=== PATIENT | female | born 1975 | race American Indian/Alaskan Native ===

== ENCOUNTER 2021-01-05 10:51 | Emergency (ER) | payer SELFPAY ==
[2021-01-05 11:02] VITALS: BP 131/73
--- NOTE | 2021-01-05 12:18 | Emergency Department Report ---
ED General Adult HPI - General Chief complaint: Skin/Abscess/Foreign Body Stated complaint: SPIDER BITE ON THUMB Time Seen by Provider: 01/05/21 11:44 Source: patient Mode of arrival: Ambulatory Limitations: No Limitations - History of Present Illness Initial comments: 45-year-old [id number] female patient presents to emergency department with complaints of nontraumatic pain and swelling to her left thumb starting last night. Patient states the pain began after she was moving some boxes in her garage. Patient is not currently on antibiotics. She is immunocompetent. Denies fever, chills, purulent drainage, paresthesias, numbness. Denies all other complaints at this time. - Related Data Previous Rx's Medication Instructions Recorded Last Taken Type Chlorhexidine Gluconate 118 ml TP QID 7 Days liquid 01/05/21 Unknown Rx [Antiseptic Skin Cleanser] Fluconazole [Diflucan TAB] 200 mg PO ONCE 1 Days #1 tablet 01/05/21 Unknown Rx Naproxen 500 mg PO BID #20 tablet 01/05/21 Unknown Rx cephALEXin [Keflex] 500 mg PO Q12HR 5 Days cap 01/05/21 Unknown Rx Allergies Allergy/AdvReac Type Severity Reaction Status Date / Time No Known Allergies Allergy Verified 01/05/21 11:00 ED Review of Systems ROS: Stated complaint: SPIDER BITE ON THUMB Other details as noted in HPI Other: GENERAL: Negative for fever. CARDIOVASCULAR: Negative for chest pain. PULMONARY: Negative for shortness of breath. GASTROINTESTINAL: Negative for abdominal pain. MUSCULOSKELETAL: Positive for thumb pain. NEUROLOGICAL: Negative for headache. INTEGUMENTARY: Negative for rash. ED Past Medical Hx - Past Medical History Previous Medical History?: No - Surgical History Past Surgical History?: No - Social History Smoking Status: Never Smoker Substance Use Type: Alcohol - Medications Home Medications: Home Medications Medication Instructions Recorded Confirmed Last Taken Type Chlorhexidine Gluconate 118 ml TP QID 7 Days liquid 01/05/21 Unknown Rx [Antiseptic Skin Cleanser] Fluconazole [Diflucan TAB] 200 mg PO ONCE 1 Days #1 tablet 01/05/21 Unknown Rx Naproxen 500 mg PO BID #20 tablet 01/05/21 Unknown Rx cephALEXin [Keflex] 500 mg PO Q12HR 5 Days cap 01/05/21 Unknown Rx ED Physical Exam - General Limitations: No Limitations - Other Other exam information: General: Awake, appropriately interactive, no acute distress. Neck: Supple. Full range of motion intact. Cardiovascular: Normal peripheral perfusion. Pulmonary: No respiratory distress. Patient is speaking normally without use of accessory muscles. Skin: Tenderness to palpation along the distal aspect of the left thumb, adjacent to the nailbed, with overlying erythema and soft tissue swelling. There is minimal fluctuance. There is no drainage. No proximally streaking erythema. Patient is able to flex and extend the thumb with and without resistance. Distal neurovascular and motor/sensory function intact. Neurological: No facial asymmetry. Speech is clear. Follows commands. Patient is alert and oriented. Musculoskeletal: Moves all four extremities spontaneously with normal range of motion. Psych: Cooperative. Appropriate mood and affect. ED Course Vital Signs 01/05/21 11:00 Temperature 98.4 F Pulse Rate 88 Respiratory 18 Rate Blood Pressure 131/73 O2 Sat by Pulse 100 Oximetry ED Medical Decision Making - Medical Decision Making Differential diagnosis including but not limited to: paronychia, felon, abscess, cellulitis, necrotizing soft tissue infection Patient presents to the emergency department with signs/symptoms consistent with paronychia. Patient was barely able to cooperate with examination of the hand; incision & drainage of the left thumb was offered, but patient refused. She has expressed a preference for conservative management. Patient is afebrile, hemodynamically stable, neurovascularly intact. Only minimal fluctuance is present; it is reasonable to proceed with oral antibiotics, analgesics, and warm compresses, with the understanding that she must undergo the procedure if symptoms persist or worsen after 24 hours of antibiotic therapy. She has been instructed to call her primary care provider tomorrow to arrange for repeat evaluation in 48 hours. Patient expressed understanding and is agreeable to plan of care. States she is susceptible to yeast infections when taking antibiotics; prescribed Diflucan. Strict return precautions provided. Repeat exam is unremarkable and benign. History, exam, diagnostic testing, and current condition do not suggest worrisome pathology to warrant further testing, continued ED treatment, admission, or surgical evaluation at this point. Given the low probability of a significant medical illness, it would be more likely to result in harm than benefit to perform further testing at this stage. Discussed findings, presumptive diagnosis, need for follow-up and specific signs/symptoms that should prompt immediate return to the emergency department. Instructions were explained in detail to the patient in addition to giving written discharge information. Patient expressed understanding and was given the opportunity to ask questions, all of which were satisfactorily answered prior to discharge home. Critical care attestation.: If time is entered above; I have spent that time in minutes in the direct care of this critically ill patient, excluding procedure time. ED Disposition Clinical Impression: Paronychia of left thumb Disposition: DC- TO HOME OR SELFCARE Is pt being admited?: No Does the pt Need Aspirin: No Condition: Stable Instructions: Paronychia, [id number] Additional Instructions: Take Tylenol every 4 hours as needed for pain. Take Naprosyn twice daily with food as needed for pain. Take Keflex with food as directed. Take Diflucan for prevention of yeast infection. Soak the affected area in warm water and antiseptic (Chlorhexidine) four times daily. The area may begin to drain on its own. Do not attempt to forcefully expect drainage from the area.Follow-up with primary care provider this week. Call tomorrow to schedule an appointment. See referral information below. Return to the emergency department immediately for new or worsening symptoms. Specifically, return to the emergency department immediately for fever, worsening pain, increased swelling, streaking redness, or if symptoms worsen after 24 hours of antibiotic therapy. Prescriptions: Chlorhexidine Gluconate [Antiseptic Skin Cleanser] 118 ml TP QID 7 Days liquid Fluconazole [Diflucan TAB] 200 mg PO ONCE 1 Days #1 tablet cephALEXin [Keflex] 500 mg PO Q12HR 5 Days cap Naproxen 500 mg PO BID #20 tablet Referrals: NEY CABA MD [Staff Physician] - 3-5 Days [facility] [Outside] - 3-5 Days [facility] [Outside] - 3-5 Days [facility] [Outside] - 3-5 Days Time of Disposition: 12:21
== END 2021-01-05 12:44 | disposition home or self-care (01) ==
LOC: ED 10:51
DX: L03.012 Cellulitis of left finger (principal); Z79.899 Other long term (current) drug therapy
CPT/HCPCS: 99282

== ENCOUNTER 2021-07-13 07:25 | Emergency (ER) | payer SELFPAY ==
[2021-07-13 07:54] VITALS: BP 155/76
--- NOTE | 2021-07-13 07:56 | Emergency Department Report ---
ED Eye Problem HPI - General Chief complaint: Eye Problems Stated complaint: LFT EYE PROBLEM Time Seen by Provider: 07/13/21 07:32 Source: patient Mode of arrival: Ambulatory Limitations: No Limitations - History of Present Illness Initial comments: This is a 45-year-old female nontoxic, well nourished in appearance, no acute signs of distress presents to the ED with c/o of left lower eyelid redness with some swelling that started last night. Patient stated woke up this morning with lower periorbital redness. Patient denies any trauma to the eye. Denies any foreign body sensation or floaters. Patient denies any eye pain. Patient denies any visual changes or decreased vision. Patient denies any fever, chills, nausea, vomiting, chest pain, breath, headache, stiff neck numbness or tingling. Patient denies any allergies. Patient denies any trauma or injuries. -: days(s) Onset Description: gradual Location: left eye Place: home If Injury: none Severity: mild Severity scale (0 -10): 3 If Pain, Quality: aching Consistency: constant Associated Symptoms: none. denies: headache, neck pain, nausea/vomiting, cough, rhinorrhea, fever, shortness of breath Treatments Prior to Arrival: none - Related Data Previous Rx's Medication Instructions Recorded Last Taken Type Chlorhexidine Gluconate 118 ml TP QID 7 Days liquid 01/05/21 Unknown Rx [Antiseptic Skin Cleanser] Fluconazole [Diflucan TAB] 200 mg PO ONCE 1 Days #1 tablet 01/05/21 Unknown Rx Naproxen 500 mg PO BID #20 tablet 01/05/21 Unknown Rx cephALEXin [Keflex] 500 mg PO Q12HR 5 Days cap 01/05/21 Unknown Rx Amoxicillin/K Clav Tab [Augmentin 1 tab PO Q12HR #20 tab 07/13/21 Unknown Rx 875 mg] Erythromycin [Erythromycin Ophth 1 applic OS BID 7 Days #1 tube 07/13/21 Unknown Rx Oint] Naproxen 500 mg PO Q12H PRN #12 tablet 07/13/21 Unknown Rx Allergies Allergy/AdvReac Type Severity Reaction Status Date / Time No Known Allergies Allergy Verified 01/05/21 11:00 ED Review of Systems ROS: Stated complaint: LFT EYE PROBLEM Other details as noted in HPI Comment: All other systems reviewed and negative Constitutional: denies: chills, fever Eyes: other (left eyelid pain and swelling). denies: eye pain, eye discharge, vision change ENT: denies: ear pain, throat pain Respiratory: denies: cough, shortness of breath, wheezing Cardiovascular: denies: chest pain, palpitations Endocrine: no symptoms reported Gastrointestinal: denies: abdominal pain, nausea, diarrhea Genitourinary: denies: urgency, dysuria, discharge Musculoskeletal: denies: back pain, joint swelling, arthralgia Skin: denies: rash, lesions Neurological: denies: headache, weakness, paresthesias Psychiatric: denies: anxiety, depression Hematological/Lymphatic: denies: easy bleeding, easy bruising ED Past Medical Hx - Past Medical History Previous Medical History?: No - Surgical History Past Surgical History?: Yes Additional Surgical History: - Social History Smoking Status: Never Smoker Substance Use Type: Alcohol - Medications Home Medications: Home Medications Medication Instructions Recorded Confirmed Last Taken Type Chlorhexidine Gluconate 118 ml TP QID 7 Days liquid 01/05/21 Unknown Rx [Antiseptic Skin Cleanser] Fluconazole [Diflucan TAB] 200 mg PO ONCE 1 Days #1 tablet 01/05/21 Unknown Rx Naproxen 500 mg PO BID #20 tablet 01/05/21 Unknown Rx cephALEXin [Keflex] 500 mg PO Q12HR 5 Days cap 01/05/21 Unknown Rx Amoxicillin/K Clav Tab [Augmentin 1 tab PO Q12HR #20 tab 07/13/21 Unknown Rx 875 mg] Erythromycin [Erythromycin Ophth 1 applic OS BID 7 Days #1 tube 07/13/21 Unknown Rx Oint] Naproxen 500 mg PO Q12H PRN #12 tablet 07/13/21 Unknown Rx ED Physical Exam - General Limitations: No Limitations General appearance: alert, in no apparent distress - Head Head exam: Present: atraumatic, normocephalic - Eye Eye exam: Present: normal appearance, PERRL, EOMI, other (left lower periorbital redness). Absent: scleral icterus, conjunctival injection, nystagmus, periorbital swelling, periorbital tenderness Pupils: Present: normal accommodation - Expanded Eye Exam Expanded Eyelids: Normal Inspection: Right Pupils: Regular, Round: Right, Reactive: Right Sclera/Conjunctival: Normal Inspection: Right - ENT ENT exam: Present: normal exam, normal orophraynx - Neck Neck exam: Present: normal inspection, full ROM. Absent: tenderness, meningism us, lymphadenopathy - Respiratory Respiratory exam: Absent: respiratory distress - Cardiovascular Cardiovascular Exam: Present: regular rate - Extremities Exam Extremities exam: Present: full ROM - Back Exam Back exam: Present: full ROM - Neurological Exam Neurological exam: Present: alert, oriented X3, normal gait - Psychiatric Psychiatric exam: Present: normal affect, normal mood - Skin Skin exam: Present: warm, dry, intact, normal color. Absent: rash ED Course Vital Signs 07/13/21 07:32 Temperature 97.9 F Pulse Rate 85 Respiratory 18 Rate Blood Pressure 155/76 O2 Sat by Pulse 100 Oximetry - Reevaluation(s) Reevaluation #1: 07/13/21 07:55 Patient is speaking in full sentences with no signs of distress noted. ED Medical Decision Making - Medical Decision Making 45-year-old female that presents with left periorbital cellulitis and left lower eyelid stye. Patient is stable was examined by me. Patient be treated with Augmentin and erythromycin ointment. Physical exam otherwise unremarkable. Patient educated on stye and applying warm compressors. Patient was instructed to follow-up with a primary care and fortune teller doctor in 3-5 days or if symptoms worsen and continue return to emergency room as soon as possible. At time of discharge, the patient does not seem toxic or ill in appearance. No acute signs of distress noted. Patient agrees to discharge treatment plan of care. No further questions noted by the patient. Critical care attestation.: If time is entered above; I have spent that time in minutes in the direct care of this critically ill patient, excluding procedure time. ED Disposition Clinical Impression: Periorbital cellulitis of left eye Hordeolum eyelid Qualifiers: Hordeolum type: unspecified type Laterality: left Eyelid: lower Qualified Code(s): H00.015 - Hordeolum externum left lower eyelid Disposition: 01 HOME / SELF CARE / HOMELESS Is pt being admited?: No Does the pt Need Aspirin: No Condition: Stable Instructions: Stye, Orbital Cellulitis Additional Instructions: Follow-up with a primary care and fortune teller doctor in 3-5 days or if symptoms worsen and continue return to emergency room as soon as possible. Prescriptions: Amoxicillin/K Clav Tab [Augmentin 875 mg] 1 tab PO Q12HR #20 tab Erythromycin [Erythromycin Ophth Oint] 1 applic OS BID 7 Days #1 tube Naproxen 500 mg PO Q12H PRN #12 tablet PRN Reason: Pain , Severe (7-10) Referrals: PRIMARY CAREMD [Referring] - 3-5 Days NEY CABA MD [Staff Physician] - 3-5 Days LORENZA HOPKINS MD [Staff Physician] - 3-5 Days Forms: Work/School Release Form(ED) Time of Disposition: 08:00
== END 2021-07-13 08:12 | disposition home or self-care (01) ==
LOC: ED 07:25
DX: L03.213 Periorbital cellulitis (principal); H00.015 Hordeolum externum left lower eyelid; Z72.89 Other problems related to lifestyle; Z79.899 Other long term (current) drug therapy
CPT/HCPCS: 99281

== ENCOUNTER 2021-08-18 10:06 | Emergency (ER) | payer SELFPAY ==
[2021-08-18 10:29] VITALS: BP 132/87
[2021-08-18 12:05] LABS: Basophils % (Auto) 0.6 % (0.0-1.8); Eosinophils # (Auto) 0.3 K/mm3 (0.0-0.4); Eosinophils % (Auto) 4.6 % (0.0-4.3); Hemoglobin 8.4 gm/dl (10.1-14.3); Lymphocytes # (Auto) 1.4 K/mm3 (1.2-5.4); Lymphocytes % (Auto) 26.3 % (13.4-35.0); Mean Corpuscular HGB Conc 30 % (30-34); Monocytes # (Auto) 0.4 K/mm3 (0.0-0.8); Monocytes % (Auto) 6.5 % (0.0-7.3); Platelet Count 318 K/mm3 (140-440); Red Blood Count 4.05 M/mm3 (3.65-5.03)
[2021-08-18 12:08] LABS: Mean Corpuscular Volume 69 fl (79-97); Red Cell Distribution Width 21.6 % (13.2-15.2)
[2021-08-18 12:30] LABS: Alanine Aminotransferase 17 units/L (7-56); Albumin 4.3 g/dL (3.9-5); Blood Urea Nitrogen 8 mg/dL (7-17); Calcium 9.1 mg/dL (8.4-10.2); Hemolysis Index 1
[2021-08-18 12:54] LABS: BUN/Creatinine Ratio 20
[2021-08-18 12:58] LABS: Bilirubin,Urine NEG (Negative); Blood,Urine NEG (Negative); Color,Urine Yellow (Yellow); Mucus,Urine FEW /HPF; Protein,Urine <15 mg/dL mg/dL (Negative); Urobilinogen,Urine < 2.0 mg/dL (<2.0)
--- NOTE | 2021-08-18 13:04 | Emergency Department Report ---
ED General Adult HPI - General Chief complaint: Abdominal Pain Stated complaint: BLOATED, NAUSEATED, CRAMPS, BACK PAIN Time Seen by Provider: 08/18/21 11:13 Source: patient Mode of arrival: Ambulatory Limitations: No Limitations - History of Present Illness Initial comments: Patient is a 45-year-old female presents emergency room with complaints of gene ralized abdominal discomfort and abdominal bloating for approximately 1 year. Patient states her symptoms worsen after she eats. she states that she is still eating and tolerating PO intake. She states after she eats she either has vomiting or diarrhea. She has not seen a GI doctor or primary care doctor. She denies any hematochezia, melena, hematemesis, fever, chills, dysuria. Patient states that she also missed her menstrual cycle last month and believes that she may be perimenopausal. She states that she has also had clumpy vaginal discharge with itching and reports she believes she has a yeast infection but denies any vaginal burning. She denies any concerns for STDs and politely declines STD testing or treatment. She denies any past medical history or daily medications. No allergies to medications. - Related Data Previous Rx's Medication Instructions Recorded Last Taken Type Chlorhexidine Gluconate 118 ml TP QID 7 Days liquid 01/05/21 Unknown Rx [Antiseptic Skin Cleanser] Fluconazole [Diflucan TAB] 200 mg PO ONCE 1 Days #1 tablet 01/05/21 Unknown Rx Naproxen 500 mg PO BID #20 tablet 01/05/21 Unknown Rx cephALEXin [Keflex] 500 mg PO Q12HR 5 Days cap 01/05/21 Unknown Rx Amoxicillin/K Clav Tab [Augmentin 1 tab PO Q12HR #20 tab 07/13/21 Unknown Rx 875 mg] Erythromycin [Erythromycin Ophth 1 applic OS BID 7 Days #1 tube 07/13/21 Unknown Rx Oint] Naproxen 500 mg PO Q12H PRN #12 tablet 07/13/21 Unknown Rx Docusate Sodium [Colace] 100 mg PO BID #60 capsule 08/18/21 Unknown Rx Famotidine [Pepcid] 40 mg PO QHS #20 tablet 08/18/21 Unknown Rx Ferrous Sulfate [Ferrous Sulfate 324 mg PO DAILY #30 tablet. 08/18/21 Unknown Rx 324 MG] Fluconazole [Diflucan TAB] 150 mg PO ONCE 1 Days #3 tablet 08/18/21 Unknown Rx Hyoscyamine Subl [Levsin Sl 0.125 0.125 mg SL Q6HR PRN #12 tab 08/18/21 Unknown Rx TAB] Ondansetron [Zofran Odt] 4 mg PO Q8HR PRN #12 tab.rapdis 08/18/21 Unknown Rx Allergies Allergy/AdvReac Type Severity Reaction Status Date / Time No Known Allergies Allergy Verified 08/18/21 10:28 ED Review of Systems ROS: Stated complaint: BLOATED, NAUSEATED, CRAMPS, BACK PAIN Other details as noted in HPI Comment: All other systems reviewed and negative ED Past Medical Hx - Surgical History Additional Surgical History: - Social History Smoking Status: Never Smoker Substance Use Type: Alcohol - Medications Home Medications: Home Medications Medication Instructions Recorded Confirmed Last Taken Type Chlorhexidine Gluconate 118 ml TP QID 7 Days liquid 01/05/21 Unknown Rx [Antiseptic Skin Cleanser] Fluconazole [Diflucan TAB] 200 mg PO ONCE 1 Days #1 tablet 01/05/21 Unknown Rx Naproxen 500 mg PO BID #20 tablet 01/05/21 Unknown Rx cephALEXin [Keflex] 500 mg PO Q12HR 5 Days cap 01/05/21 Unknown Rx Amoxicillin/K Clav Tab [Augmentin 1 tab PO Q12HR #20 tab 07/13/21 Unknown Rx 875 mg] Erythromycin [Erythromycin Ophth 1 applic OS BID 7 Days #1 tube 07/13/21 Unknown Rx Oint] Naproxen 500 mg PO Q12H PRN #12 tablet 07/13/21 Unknown Rx Docusate Sodium [Colace] 100 mg PO BID #60 capsule 08/18/21 Unknown Rx Famotidine [Pepcid] 40 mg PO QHS #20 tablet 08/18/21 Unknown Rx Ferrous Sulfate [Ferrous Sulfate 324 mg PO DAILY #30 tablet.dr 08/18/21 Unknown Rx 324 MG] Fluconazole [Diflucan TAB] 150 mg PO ONCE 1 Days #3 tablet 08/18/21 Unknown Rx Hyoscyamine Subl [Levsin Sl 0.125 0.125 mg SL Q6HR PRN #12 tab 08/18/21 Unknown Rx TAB] Ondansetron [Zofran Odt] 4 mg PO Q8HR PRN #12 tab.rapdis 08/18/21 Unknown Rx ED Physical Exam - General Limitations: No Limitations General appearance: alert, in no apparent distress - Head Head exam: Present: atraumatic, normocephalic - Eye Eye exam: Present: normal appearance - ENT ENT exam: Present: mucous membranes moist - Respiratory Respiratory exam: Present: normal lung sounds bilaterally. Absent: respiratory distress, wheezes, rales, rhonchi, stridor, chest wall tenderness, accessory muscle use, decreased breath sounds, prolonged expiratory - Cardiovascular Cardiovascular Exam: Present: regular rate, normal rhythm, normal heart sounds. Absent: systolic murmur, diastolic murmur, rubs, gallop - GI/Abdominal GI/Abdominal exam: Present: soft, normal bowel sounds. Absent: distended, tenderness, guarding, rebound, rigid - Neurological Exam Neurological exam: Present: alert, oriented X3 - Psychiatric Psychiatric exam: Present: normal affect, normal mood - Skin Skin exam: Present: warm, dry, intact ED Course Vital Signs 08/18/21 10:25 Temperature 98.6 F Pulse Rate 78 Respiratory 18 Rate Blood Pressure 132/87 [Left] O2 Sat by Pulse 100 Oximetry ED Medical Decision Making - Lab Data Result diagrams: 08/18/21 11:45 08/18/21 11:45 Lab Results 08/18/21 08/18/21 08/18/21 Range/Units 11:45 11:45 11:45 WBC 5.4 (4.5-11.0) K/mm3 RBC 4.05 (3.65-5.03) M/mm3 Hgb 8.4 L (10.1-14.3) gm/dl Hct 28.0 L (30.3-42.9) % MCV 69 L (79-97) fl MCH 21 L (28-32) pg MCHC 30 (30-34) % RDW 21.6 H (13.2-15.2) % Plt Count 318 (140-440) K/mm3 Lymph % (Auto) 26.3 (13.4-35.0) % Toole % (Auto) 6.5 (0.0-7.3) % Eos % (Auto) 4.6 H (0.0-4.3) % Baso % (Auto) 0.6 (0.0-1.8) % Lymph # (Auto) 1.4 (1.2-5.4) K/mm3 Toole # (Auto) 0.4 (0.0-0.8) K/mm3 Eos # (Auto) 0.3 (0.0-0.4) K/mm3 Baso # (Auto) 0.0 (0.0-0.1) K/mm3 Seg Neutrophils % 62.0 (40.0-70.0) % Seg Neutrophils # 3.4 (1.8-7.7) K/mm3 Sodium 139 (137-145) mmol/L Potassium 3.7 (3.6-5.0) mmol/L Chloride 103.8 (98-107) mmol/L Carbon Dioxide 23 (22-30) mmol/L Anion Gap 16 mmol/L BUN 8 (7-17) mg/dL Creatinine 0.4 L (0.6-1.2) mg/dL Estimated GFR > 60 ml/min BUN/Creatinine Ratio 20 % Glucose 102 H (65-100) mg/dL Calcium 9.1 (8.4-10.2) mg/dL Total Bilirubin 0.30 (0.1-1.2) mg/dL AST 23 (5-40) units/L ALT 17 (7-56) units/L Alkaline Phosphatase 80 (35-129) units/L Total Protein 7.5 (6.3-8.2) g/dL Albumin 4.3 (3.9-5) g/dL Albumin/Globulin Ratio 1.3 % Lipase 17 (13-60) units/L HCG, Qual Negative (Negative) Urine Color (Yellow) Urine Turbidity (Clear) Urine pH (5.0-7.0) Ur Specific Turney (1.003-1.030) Urine Protein (Negative) mg/dL Urine Glucose (UA) (Negative) mg/dL Urine Ketones (Negative) mg/dL Urine Blood (Negative) Urine Nitrite (Negative) Urine Bilirubin (Negative) Urine Urobilinogen (<2.0) mg/dL Ur Leukocyte Esterase (Negative) Urine WBC (Auto) (0.0-6.0) /HPF Urine RBC (Auto) (0.0-6.0) /HPF U Epithel Cells (Auto) (0-13.0) /HPF Urine Mucus /HPF 12/13/21 Range/Units Unknown WBC (4.5-11.0) K/mm3 RBC (3.65-5.03) M/mm3 Hgb (10.1-14.3) gm/dl Hct (30.3-42.9) % MCV (79-97) fl MCH (28-32) pg MCHC (30-34) % RDW (13.2-15.2) % Plt Count (140-440) K/mm3 Lymph % (Auto) (13.4-35.0) % Toole % (Auto) (0.0-7.3) % Eos % (Auto) (0.0-4.3) % Baso % (Auto) (0.0-1.8) % Lymph # (Auto) (1.2-5.4) K/mm3 Toole # (Auto) (0.0-0.8) K/mm3 Eos # (Auto) (0.0-0.4) K/mm3 Baso # (Auto) (0.0-0.1) K/mm3 Seg Neutrophils % (40.0-70.0) % Seg Neutrophils # (1.8-7.7) K/mm3 Sodium (137-145) mmol/L Potassium (3.6-5.0) mmol/L Chloride (98-107) mmol/L Carbon Dioxide (22-30) mmol/L Anion Gap mmol/L BUN (7-17) mg/dL Creatinine (0.6-1.2) mg/dL Estimated GFR ml/min BUN/Creatinine Ratio % Glucose (65-100) mg/dL Calcium (8.4-10.2) mg/dL Total Bilirubin (0.1-1.2) mg/dL AST (5-40) units/L ALT (7-56) units/L Alkaline Phosphatase (35-129) units/L Total Protein (6.3-8.2) g/dL Albumin (3.9-5) g/dL Albumin/Globulin Ratio % Lipase (13-60) units/L HCG, Qual (Negative) Urine Color Yellow (Yellow) Urine Turbidity Clear (Clear) Urine pH 6.0 (5.0-7.0) Ur Specific Turney 1.017 (1.003-1.030) Urine Protein <15 mg/dl (Negative) mg/dL Urine Glucose (UA) Neg (Negative) mg/dL Urine Ketones Neg (Negative) mg/dL Urine Blood Neg (Negative) Urine Nitrite Neg (Negative) Urine Bilirubin Neg (Negative) Urine Urobilinogen < 2.0 (<2.0) mg/dL Ur Leukocyte Esterase Sm (Negative) Urine WBC (Auto) 2.0 (0.0-6.0) /HPF Urine RBC (Auto) 2.0 (0.0-6.0) /HPF U Epithel Cells (Auto) 3.0 (0-13.0) /HPF Urine Mucus Few /HPF - Medical Decision Making Patient is a 45-year-old female presents emergency room with complaints of generalized abdominal discomfort and abdominal bloating for approximately 1 year. Patient states her symptoms worsen after she eats. she states that she is still eating and tolerating PO intake. She states after she eats she either has vomiting or diarrhea. She has not seen a GI doctor or primary care doctor. She denies any hematochezia, melena, hematemesis, fever, chills, dysuria. Patient states that she also missed her menstrual cycle last month and believes that she may be perimenopausal. She states that she has also had clumpy vaginal discharge with itching and reports she believes she has a yeast infection but denies any vaginal burning. She denies any concerns for STDs and politely declines STD testing or treatment. She denies any past medical history or daily medications. No allergies to medications. Vitals are stable. No abdominal tenderness on exam, no guarding, no rebound, no rigidity, no peritoneal signs. Labs with stable microcytic anemia, patient has history of anemia and ports that she has been transfused in the past. She denies any bleeding currently. UA is within normal limits. Patient given prescription for medications for symptomatic relief. Discussed the importance of GI follow-up with patient as she likely needs endoscopy/colonoscopy. Patient has no tenderness on exam, she is afebrile, no tachycardia, no leukocytosis, symptoms have been ongoing for 1 year. Discussed all results with patient. discussed the importance of follow- up. Advised patient Please take medication as prescribed. Increase your water intake. Eat a bland liquid diet and slowly advance your diet as tolerated. Follow-up with a GI doctor. Follow-up with your primary care doctor. Return to emergency room for any new or worsening symptoms. Critical care attestation.: If time is entered above; I have spent that time in minutes in the direct care of this critically ill patient, excluding procedure time. ED Disposition Clinical Impression: Abdominal discomfort, Abdominal bloating, Nausea vomiting and diarrhea, Microcytic anemia Vaginitis Qualifiers: Chronicity: acute Qualified Code(s): N76.0 - Acute vaginitis Disposition: HOME / SELF CARE / HOMELESS Is pt being admited?: No Does the pt Need Aspirin: No Condition: Stable Instructions: Vaginitis, [id number], Abdominal Bloating, Food Choices to Help Relieve Diarrhea, Adult, Abdominal Pain (ED) Additional Instructions: Please take medication as prescribed. Increase your water intake. Eat a bland liquid diet and slowly advance your diet as tolerated. Follow-up with a GI doctor. Follow-up with your primary care doctor. Return to emergency room for any new or worsening symptoms. Prescriptions: Famotidine [Pepcid] 40 mg PO QHS #20 tablet Docusate Sodium [Colace] 100 mg PO BID #60 capsule Fluconazole [Diflucan TAB] 150 mg PO ONCE 1 Days #3 tablet Ferrous Sulfate [Ferrous Sulfate 324 MG] 324 mg PO DAILY #30 tablet. Hyoscambar Subl [Levsin Sl 0.125 TAB] 0.125 mg SL Q6HR PRN #12 tab PRN Reason: abdominal cramping/diarrhea Ondansetron [Zofran Odt] 4 mg PO Q8HR PRN #12 tab.rapdis PRN Reason: nausea/vomiting Referrals: PRIMARY CARE, [Primary Care Provider] - 3-5 Days [facility] [Provider Group] - 3-5 Days Time of Disposition: 13:05 Print Language: PALESTINIAN
== END 2021-08-18 13:47 | disposition home or self-care (01) ==
LOC: ED 10:06
DX: N76.0 Acute vaginitis (principal); D50.9 Iron deficiency anemia, unspecified; R14.0 Abdominal distension (gaseous); R11.2 Nausea with vomiting, unspecified; R19.7 Diarrhea, unspecified; Z98.890 Other specified postprocedural states
CPT/HCPCS: 36415; 80053; 81001; 83690; 84703; 85025; 99283